=== PATIENT | female | born 1965 | race Caucasian/White ===

== ENCOUNTER 2017-03-18 06:13 | Day surgery (SDC) | payer OTHER ==
[~2017-03-18] VITALS: Ht 152.4 cm; Wt 94.3 kg
[~2017-03-18 06:13] MED LIST: ALBU18HF INH; HC/M110O2 TP; Lactated Ringer's 1,000 ML IV SCH
[2017-03-18 06:40] VITALS: BP 133/62; PULSE 78; RESP 17; O2SAT 97
[2017-03-18] MEDS ORDERED: Lactated Ringer's 1,000 ML IV ONE (06:40)
[2017-03-18] MEDS ORDERED: HYDROcodone-APAP 5-325 mg Tablet PO PRN (07:30)
[2017-03-18] MEDS ORDERED: Lactated Ringer's 500 ML IV PRN (08:06)
[2017-03-18] MEDS ORDERED: Lactated Ringer's 1,000 ML IV SCH (08:06)
--- NOTE | 2017-03-18 08:06 | PCM.HPANE ---
Patient Data Surgeon Admitting Provider: Attending Provider:Tc Urias DO Primary Care Physician:Raven José Other Provider:Edgardo Armando Anesthesia Reason for Visit Right Carpal Tunnel Syndrome Ht/WT & BMI Height (Feet): 5 Height (Inches): 0.00 Weight (Kilograms): 94.300 Body Mass Index 40.00 Allergies Coded Allergies: latex (Unverified Allergy, Severe, ITCHY RASH, 03/12/17) Uncoded Allergies: BODY LOTIONS (Allergy, Severe, ASTHMA ATTACK, 03/12/17) PERFUMES (Adverse Reaction, Severe, ASTHMATIC REACTION,HIVES, 10/31/13) Past Anesthesia History Anesthesia History: Denies:: Abnormal Airway, Anesthesia Reactions, Difficult Intubation, Fam Anesthesia Reaction, Fam Malignant Hypertherm, Malignant Hyperthermia Diabetes History Hx Diabetes?: No MRSA MRSA: No Medications Home Meds Incl Beta Ofelia: No Reported Medications Hc/Mineral Oil/Petrolat,Wht (Hydrocortisone 1% Absorbase)25 Gm Oint...g.25 Gm TP 03/12/17 Albuterol Sulfate (Ventolin HFA Inhaler)200 Puff/18 Gm Inhaler1 Puff INH Q4 PRN For Wheezing #1 INHALER Ref 0 03/12/17 History History of ENT Problems?: Yes HEENT History: Denies:: Abnormal Airway Cataracts Difficult Intubation Dysphagia Glaucoma Hearing Problem Sinus Problem TMJ Denture Type: None Teeth Condition: Within Normal Limits Hx of Heart Problems?: Yes Cardiovascular History: Denies:: AICD Abdominal Aortic Aneurism Atrial Fibrillation Cardiac Surgery Chest Pain Congestive Heart Failure Coronary Artery Disease Edema Heart Murmur Hypertension Irregular Heartbeat Pacemaker Peripheral Vascular Rheumatic Fever Thrombophlebitis Valvular Heart Disease Hx of Respiratory Problem?: Yes Respiratory History: Positive for:: Asthma (allergic reaction to perfumes) Pneumonia (1980) Use of Inhalers / NEBS (Albuterol) Denies:: COPD Cough Dyspnea Emphysema Hemoptysis Pulmonary Embolism Tuberculosis Use of C-PAP Machine Hx Neurologic Problems?: No Neurological History: Denies:: Alzheimer's Disease CVA Dementia Dizziness Headaches Multiple Sclerosis Parkinson's Disease Seizures TIA Hx of GI Problems?: Yes Hx of Problems?: No Female Hx: Denies:: Currently Problems with Breasts? Skin History: Denies:: History Skin Disorders? Pressure Ulcers Hx Musculoskeletal Problems?: Yes Musculoskeletal History: Denies:: Back Injury Degenerative Joint Fibromyalgia Joint Replacement Musculoskeletal Trauma Myasthenia Gravis Osteoarthritis Rheumatoid Arthritis Systemic Lupus Hx of Psycho/Social Problems?: Yes Psycho Social History: Positive for:: Anxiety Hx Depression Hx Surgeries?: Yes (C/S,TONSILLECTOMY,LASIK,ACL RPR, whipple procedure) Hx Any Other Health Problems?: Yes Other History: Positive for:: Hospitalization (2013 Whipple surg) Denies:: Cancer Endocrine Disease Thyroid Disease History Blood Transfusions: Positive for:: Accept Blood Products? Denies:: Blood Transfusions Hx Diabetes: No Hx Alcohol Use: Yes (social drinker)Hx Substance Use: NoHave You Smoked inLast 12 mo: No Stop/Bang S-Snoring: Do You Snore Loudly: Yes T-Tired: feel tired, fatigued: No O-Obsered: Observed not breath: Yes P-Blood Pressure: treated: No B- Body Mass Index > 35 kg/m2: No A- Age over 50: Yes N- Neck Large Circumference: No G- Gender Male: No ANNELISE Total Score: 3 Risk Assessment Category Category 1A: Patient has history of documented sleep apnea, and HAS NOT received any narcotic, sedative or anesthesia administration during this stay. Category 1B: Patient has history of documented sleep apnea, and HAS received any narcotic , sedative or anesthesia administration during this stay Category 2: Patient has SUSPECTED Obstructive Sleep Apnea, and HAS received any narcotic , sedative or anesthesia administration during this stay. Category 3: Patient has SUSPECTED Obstructive Sleep Apnea and HAS NOT received narcotic, sedative or anesthesia administration during this stay. Category 4: Outpatient in Procedural Areas with known sleep apnea or who screen positive for High Risk via the STOP/BANG questionnaire. Exam Exam Vital Signs Vital Signs Date Time Temp Pulse Resp B/P Pulse Ox O2 Delivery O2 Flow Rate FiO2 03/18/17 06:40 35.8 78 17 133/62 97 Room Air General Appearance: Alert HEENT/AIRWAY: MP 2, Neck Movement (from, 3 fb) Meds/Labs/Diagnostics Admission Meds Current Medications Lactated Ringer's (Lr) 1,000 ml @ ud STK-MED ONCE IV Last administered on 03/18t 06:40; Start 03/18/17 at 06:40; Stop 03/18/17 at 06:41; Status DC Plan Impression Patient chart reviewed, patient interviewed and anesthestic plan with risks, benefits, and alternatives discussed, and informed consent obtained. NPO per Anesth. Guidelines: Yes ASA Physical Status: ASA2 Mod Systemic Disease Anesthetic Plan: Regional Block Bene/Risks/Altern/Consents: Yes HP Complete Prior to Induction: Yes Other Discussed IV regional. All questions were answered and she agrees to proceed. Rad Mccain MD Mar 18, 2017 07:20
[2017-03-18] MEDS ORDERED: Phenylephrine 10,000 mCg/mL Inj IVPUSH PRN (08:10)
[2017-03-18] MEDS ORDERED: EPHEDrine Sulfate 50 mg/mL Inj IVPUSH PRN (08:10)
[2017-03-18] MEDS ORDERED: Ondansetron 2 mg/mL 2 mL Inj IVPUSH PRN (08:10)
[2017-03-18] MEDS ORDERED: fentaNYL-PF 50 mCg/mL 2 mL Inj IVPUSH PRN (08:10)
[2017-03-18] MEDS ORDERED: HYDROmorphone 1 mg/mL Inj IVPUSH PRN (08:10)
[2017-03-18] MEDS ORDERED: Dexamethasone 4 mg/mL Inj IVPUSH PRN (08:10)
[2017-03-18] MEDS ORDERED: MetoCLOpramide 5 mg/mL 2 mL Inj IVPUSH PRN (08:10)
[2017-03-18] MEDS ORDERED: Lidocaine 1%-Epi 1:100,000 20 mL Inj INJ ONE (08:20)
[2017-03-18 08:36] VITALS: BP 124/75; PULSE 76; RESP 17; O2SAT 99
[2017-03-18 09:02] VITALS: BP 129/72; PULSE 74; O2SAT 98
--- NOTE | 2017-03-18 09:11 | PCM.ANEP1 ---
Post Anesthesia PACU Phase 1 Assessment Vital Signs Vital Signs Date Time Temp Pulse Resp B/P Pulse Ox O2 Delivery O2 Flow Rate FiO2 03/18/17 09:02 74 129/72 98 03/18/17 08:36 36.6 76 17 124/75 99 03/18/17 06:40 35.8 78 17 133/62 97 Room Air Anesthetic Administered: GA Level of Alertness: Awake, talking JON's with Equal Strength: Yes Pain: No Nausea or Vomiting: No CV Function & Hydration Stable: Yes Airway Device: Oxygen Delivery: Room Air Lungs: Clear to Auscultation Dermatome Level: Full Sensation PACU Phase 2 Assessment Complications: No Follow up Care: N/A Patient Instructions Provided: N/A Rad Mccain MD Mar 18, 2017 09:11
--- NOTE | 2017-03-18 09:27 | OP ---
[address] [address] OPERATIVE REPORT PATIENT: JOSE LIANG : 1965 MR#: [id number] ADMIT: 03/18/2017 JOB ID: [id number] DATE OF SURGERY: 03/18/2017 PREOPERATIVE DIAGNOSIS(ES): Right carpal tunnel syndrome. POSTOPERATIVE DIAGNOSIS(ES): Right carpal tunnel syndrome. PROCEDURE: Right open carpal tunnel release. SURGEON: Tc Urias DO ANESTHESIA: Simi block. BRIEF HISTORY: The patient is a pleasant 51-year-old female with a longstanding history of right hand pain and paresthesias. She presented today with electrodiagnostic findings after failure of conservative treatment that demonstrated right carpal tunnel syndrome and gave the patient the option to proceed with a right open carpal tunnel release. She understood the risks include, but are not limited to neurovascular injury, tendon injury, infection, failure to resolve the patient's preoperative symptoms, stiffness, persistent pain which may require further intervention. The patient had all questions answered. Consent was signed and placed in the chart. PROCEDURE IN DETAIL: The patient was brought to the operative suite and placed supine on the operating room table. Surgical time-out performed. Everyone in the room was in agreement. After appropriate anesthesia was obtained, the right arm was then prepped and draped in sterile fashion. A 2 cm long incision was made in line with the radial aspect of the ring finger and ulnar aspect of the palmaris longus. The incision was kept distal to the wrist crease and proximal to Delgado cardinal line. Subcutaneous tissues were dissected with bipolar electrocautery utilized to maintain hemostasis throughout the procedure. The palmar fascia was first identified and incised longitudinally in line with the skin incision followed by exposure of the underlying trans carpal ligament. The transcarpal ligament was then released in its entirety to include the distal extent of the antebrachial fascia. Copious irrigation was then performed followed by closure of the skin with 5-0 nylon simple interrupted fashion. The patient was then placed in a bulky soft dressing. ESTIMATED BLOOD LOSS: Less than 1 cc. COMPLICATIONS: None. DISPOSITION: The patient tolerated the procedure well. Anesthesia was reversed. The patient is transferred back to PACU. POSTOPERATIVE PLAN: The patient will follow up in office in two weeks. We will remove the patient's sutures at that time and have her start working on range of motion and scar mobilization.
== END 2017-03-18 23:59 | disposition home or self-care (01) ==
LOC: SAS 06:13
PROVIDERS: ATTEND Orthopaedic Surgery
DX: G56.03 Carpal tunnel syndrome, bilateral upper limbs (principal); J45.909 Unspecified asthma, uncomplicated; F41.9 Anxiety disorder, unspecified; Z79.899 Other long term (current) drug therapy
CPT/HCPCS: 64721; J7120